=== PATIENT | male | born 1935 | race Hispanic/Latino ===

== ENCOUNTER 2019-03-09 10:39 | Inpatient (IN) | payer MEDICARE, BC ==
[2019-03-09 11:32] LABS: Bilirubin Negative (Negative); Blood, Urine Negative (Negative); Clarity Clear (Clear); Glucose, Urine (Dipstick) Normal (Negative); Leukocyte Negative Leu/uL (Negative); Nitrite Negative (Negative); Protein, Urine (Dipstick) Negative (Neg-Trace); Urobilinogen Normal mg/dL (Less than 2)
--- NOTE | 2019-03-09 11:34 | RAD ---
PORTABLE CHEST 1 VIEW: Date: 03/09/19 Time: 1107 hours HISTORY: New onset atrial fibrillation. COMPARISON: 11/02/13. FINDINGS: Pleural calcifications again seen. Heart size normal. Aorta tortuous. Lungs expanded without lobar co nsolidation, pneumothoraces, or pleural effusions. IMPRESSION: No acute process. POS: TONYA
[2019-03-09 11:45] LABS: #Eosinphils 0.1 thou/uL (0.0-0.7); #Lymphocytes 0.7 thou/uL (1.20-3.40); #Monocytes 0.5 thou/uL (0.11-0.59); %Basophils 0.1 % (0.0-1.0); %Eosinophils 1.7 % (0.0-10.0); %Lymphocytes 13.3 % (21.0-51.0); %Monocytes 8.6 % (0.0-10.0); %Neutrophils 76.3 % (42.0-75.0); Hemoglobin 13.4 g/dL (14.0-18.0); Mean Corpuscular HGB CONC 32.7 g/dL (32.0-36.0); Mean Corpuscular Hemoglobin 25.4 pg (27.0-31.0); Mean Corpuscular Volume 77.7 fL (78.0-98.0); Mean Platelet Volume 7.6 fL (7.4-10.4); Platelet Count 219 thou/uL (130-400); RBC Distribution Width 17.2 % (11.5-14.5); Red Blood Cell (RBC) Count 5.28 mill/uL (4.70-6.10); White Blood Cell (WBC) Count 5.3 thou/uL (4.8-10.8)
[2019-03-09 12:11] LABS: ALT (SGPT) 12 U/L (8-55); AST (SGOT) 25 U/L (5-34); Albumin 4.1 g/dL (3.4-4.8); Alkaline Phosphatase 60 U/L (40-150); Anion Gap 13 mmol/L (10-20); BUN (Urea Nitrogen) 8 mg/dL (8.4-25.7); Bilirubin, Total 1.4 mg/dL (0.2-1.2); Calc. Creatinine Clearance 0 mL/min (70-130); Carbon Dioxide 24 mmol/L (23-31); Chloride 105 mmol/L (98-107); Estimated GFR-MDRD Greater than 90; Globulin 2.8 g/dL (2.4-3.5); Glucose 84 mg/dL (83-110); Magnesium 2.1 mg/dL (1.6-2.6); Potassium 4.3 mmol/L (3.5-5.1); Protein, Total 6.9 g/dL (5.8-8.1); Sodium 138 mmol/L (136-145)
[2019-03-09 16:27] LABS: Troponin I Less than 0.010 ng/mL (< 0.028)
[2019-03-09] MEDS ORDERED: Enoxaparin Sodium 60 MG/0.6 ML SYRINGE ONE (16:47)
--- NOTE | 2019-03-09 18:40 | HP ---
CHIEF COMPLAINT: Referred from GI for atrial fibrillation. HISTORY: The patient is an 83-year-old male, who presented via the emergency department. The patient presented to Dr. Valdez today for a routine followup screening colonoscopy for a history of colon cancer status post colectomy with stoma. The patient felt fine, but when he arrived at the GI lab, he was in atrial fibrillation with a heart rate in the 120s. He denied any chest pain, shortness of breath, or palpitations. He states he is very active and has had no limitations on his activities. The patient was subsequently referred to the ER, where he has had ongoing atrial fibrillation with much better rate control. He remains asymptomatic and has not received any medications at this time. Of note, the patient reports he has not had any food since Thursday and he did a bowel prep last evening, has not eaten today either. He currently says he feels fine and he remains asymptomatic. PAST MEDICAL HISTORY: Notable for the colon cancer. PAST SURGICAL HISTORY: Partial colectomy with colostomy and polypectomies. FAMILY HISTORY: The patient's father of suicide at the age of 85, but had no other medical problems. His mother had stomach cancer. His two brothers did have colon cancer with colostomies and one brother with possibly some atrial fibrillation. SOCIAL HISTORY: The patient drinks 4 to 5 beers in the evening. Denies tobacco. He is a and has 4 kids. The patient is full code and his daughters are his surrogate decision makers. REVIEW OF SYSTEMS: Minimal arthritis pain, minimal neck pain following a fall injury 30 plus years ago. All other systems reviewed. All pertinent positives and negatives noted in the HPI. ALLERGIES: NONE. HOME MEDICATIONS: None. PHYSICAL EXAMINATION: VITAL SIGNS: BP most recent 165/93, pulse 67, respirations 17, temperature 97.9, O2 saturation 99% on room air. GENERAL APPEARANCE: Age-appropriate male. He is awake and alert, in no distress. HEENT: ANALISA. No OP lesions. NECK: Supple and symmetric. No lymphadenopathy, JVD, or bruits. HEART: Regular rate and rhythm without murmurs, gallops, or rubs. LUNGS: Clear to auscultation bilaterally with good chest wall expansion and air exchange. ABDOMEN: Soft, nontender, and nondistended. Positive bowel sounds. No masses. No organomegaly. EXTREMITIES: No cyanosis, clubbing, or edema. NEUROLOGIC: The patient appears to be fully intact. He has good movement of all extremities, cognitively appropriate. PSYCHIATRIC: Normal affect and behavior. LABORATORY DATA: White count 5.3, hemoglobin 13.4, platelets 219, MCV 77.7. Chemistries; BUN is 8, total bilirubin is 1.4. BNP is 104.6. Troponin less than 0.01 x2. Urinalysis negative. Chest x-ray shows no acute process. IMPRESSION AND PLAN: 1. New diagnosis of atrial fibrillation. The patient is completely asymptomatic, so it is unclear how long he might have been having these episodes. I have been watching his monitor in the emergency department and he has been intermittently going in and out of atrial fibrillation, alternating with normal sinus rhythm. His rates tend to vary a bit with that. Requested Lovenox 1 mg/kg to be given here. We will keep him on telemetry, observe him overnight, and get an echocardiogram and a Cardiology consult. He seems to have good rate control now and does not appear to require any medications for additional rate control. We will not start on some long-term anticoagulation just yet as he is a bit anemic and appears to have some microcytosis, which could be some iron deficiency. We need to talk to Dr. Valdez as it sounds like this maybe more of a chronic issue for him. 2. Anemia. The patient has very mild microcytic anemia. Again, the patient's daughters who are present with him indicate that he had a hemoglobin around [address] Valdez and this certainly maybe chronic. He also reports in the past around the time of his original cancer that he did have to be on some iron supplementation. Job ID: [id number]
[2019-03-09 19:06] LABS: Troponin I Less than 0.010 ng/mL (< 0.028)
[2019-03-09 22:02] VITALS: BMI 20.5
[2019-03-10 05:37] LABS: Band 3 % (5-11); Eosinophils 5 % (0-10); Lymphocytes 19 % (21-51); MDiff Complete? YES; Mean Corpuscular HGB CONC 32.4 g/dL (32.0-36.0); Mean Corpuscular Hemoglobin 25.4 pg (27.0-31.0); Mean Corpuscular Volume 78.3 fL (78.0-98.0); Mean Platelet Volume 7.7 fL (7.4-10.4); Monocytes 7 % (0-10); Neutrophil 66 % (42-75); Platelet Count 223 thou/uL (130-400); RBC Distribution Width 17.4 % (11.5-14.5); Red Blood Cell (RBC) Count 5.11 mill/uL (4.70-6.10); White Blood Cell (WBC) Count 4.6 thou/uL (4.8-10.8)
[2019-03-10 05:42] LABS: Iron 23 ug/dL (65-175); Iron Binding Capacity, Total 354 mcg/dL (261-462)
[2019-03-10 06:00] LABS: Ferritin 15.97 ng/mL (22-322); Thyroid Stimulating Hormone 2.7789 uIU/mL (0.35-4.94)
[2019-03-10] MEDS ORDERED: Ferrous Sulfate 325 MG TAB PO SCH (11:30)
--- NOTE | 2019-03-10 11:31 | PDOC.HOSPP ---
- Subjective Encounter Date: 03/10/19 Encounter Time: 11:27 Subjective: Patient states he has been feeling great. Denies any complaints. Has been walking around in the halls and denies any chest pain or shortness of breath. States this colonoscopy due yesterday was a 5 year routine surveillance procedure. The one done 5 years ago was unremarkable. He had his bowel resection in the 90s. States Dr. Valdez advised he follow-up with him in a few weeks to reschedule. Seen by Dr. Pollock this morning, awaiting echo results. - Objective Vital Signs & Weight: Vital Signs (12 hours) Temp Pulse Resp BP Pulse Ox 03/10/19 07:32 98.2 F 58 L 20 137/78 95 03/10/19 04:45 97.8 F 66 18 174/93 H 100 03/09/19 23:48 97.5 F L 74 12 170/81 H 98 Weight Weight 123 lb 1.6 oz I&O: 03/09/19 03/10/19 03/11/19 06:59 06:59 06:59 Output Total 225 Balance -225 Result Diagrams: 03/10/19 04:51 03/09/19 11:17 ROS - Review of Systems Constitutional: denies: fever, chills, sweats, weakness, malaise, other Eyes: denies: pain, vision change, conjunctivae inflammation, eyelid inflammation, redness, other ENT: denies: ear pain, ear discharge, nose pain, nose discharge, nose congestion , mouth pain, mouth swelling, throat pain, throat swelling, other Respiratory: denies: cough, dry, shortness of breath, hemoptysis, SOB with excertion, pleuritic pain, sputum, wheezing, other Cardiovascular: denies: chest pain, palpitations, orthopnea, paroxysmal noc. dyspnea, edema, light headedness, other Gastrointestinal: denies: nausea, vomitting, abdominal pain, diarrhea, constipation, melena, hematochezia, other Genitourinary: denies: dysuria, frequency, incontinence, hematuria, retention, other Musculoskeletal: denies: neck pain, shoulder pain, arm pain, back pain, hand pain, leg pain, foot pain, other Skin: denies: rash, lesions, saji, bruising, other Neurological: denies: weakness, numbness, incoordination, change in speech, confusion, seizures, other - Exam NAD, awake alert General - other findings: thin, well-developed Eye: PERRL (Arcus senilis), anicteric sclera ENT: normocephalic atraumatic, no oropharyngeal lesions Neck: supple, symmetric, no lymphadenopathy Heart: RRR, no murmur, no gallops, no rubs Respiratory: CTAB Gastrointestinal: soft, non-tender, non-distended, normal bowel sounds Gastrointestinal - other findings: Ostomy bag in place, left abdomen Skin: normal turgor Neurological: CN's grossly intact Musculoskeletal: normal tone, normal strength Psychiatric: normal affect, normal behavior, A&O x 3 Hosp A/P (1) A-fib Code(s): I48.91 - UNSPECIFIED ATRIAL FIBRILLATION Status: Acute Plan: New onset afib. S/p echo. Dr. Pollock following. Awaiting results and decision re: need for anticoagulation. Given Lovenox yesterday (1mg/kg). (2) Anemia Code(s): D64.9 - ANEMIA, UNSPECIFIED Status: Acute Qualifiers: Anemia type: iron deficiency Plan: Ferritin low, patient on Ferrous Sulfate 325 mg BID. Was scheduled for colonoscopy yesterday, canceled due to new onset afib. (3) History of colon cancer Code(s): Z85.038 - PERSONAL HISTORY OF MALIGNANT NEOPLASM OF LARGE INTESTINE Status: Chronic
--- NOTE | 2019-03-10 15:38 | CON ---
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 He was to undergo every 5-year colon[address]. Valdez. When he went to have his colonoscopy, he was found to have fast heart rate and EKGs reveal atrial fibrillation. He was then admitted for further evaluation. He denies any palpitations, shortness of breath, or chest discomfort. He denies any peripheral edema, except once when his hemoglobin was 3.6. PAST MEDICAL HISTORY: He denies any history of hypertension, diabetes, or hypercholesterolemia, although his blood pressure has been elevated here. MEDICATIONS: None, although he is supposed to be taking daily iron. ALLERGIES: NONE. PAST SURGICAL HISTORY: Removal of colon cancer. He also has had polypectomies. He has colostomy. SOCIAL HISTORY: He smoked as a teenager. He has 5 or 6 beers per day. FAMILY HISTORY: Negative for coronary artery disease. PHYSICAL EXAMINATION: VITAL SIGNS: Blood pressure 137/78. He has had blood pressures up to 174/93. Since he has been admitted, he has been in sinus rhythm. HEENT: PERRL. NECK: Supple. CHEST: Clear. CARDIAC: S1 and S2 are normal without any S3 or S4. There is a 1 to 2/6 systolic ejection murmur at the apex. Carotid upstroke is normal without bruits. ABDOMEN: Normal bowel sounds. EXTREMITIES: Revealed no clubbing, cyanosis, or edema. NEUROLOGIC: Grossly intact. IMAGING STUDIES: Chest x-ray revealed pleural calcifications. EKG, sinus tachycardia with rate of 121 per minute with nonspecific T-wave changes. Echocardiogram revealed normal left ventricular systolic function with ejection fraction of 50% to 55%, mild aortic stenosis, moderate aortic insufficiency, mitral annular calcification, moderate mitral regurgitation, mild tricuspid regurgitation. LABORATORY DATA: Hemoglobin 13.0, hematocrit 40.0, white count 4600, platelets 223,000. Sodium 138, potassium 4.3, chloride 105, carbon dioxide 24, BUN 8 creatinine 0.70. TSH is normal. BNP 104.6. Troponin I is normal. Iron 23, TIBC 354, percent saturation 7%. IMPRESSION: 1. Paroxysmal atrial fibrillation, asymptomatic. 2. Probable hypertension with elevated blood pressures during this admission. 3. History of arteriovenous malformations and gastrointestinal bleeding. He is not taking any iron for the last year and does have low serum iron. 4. History of colonic cancer status post partial colectomy with colostomy. 5. Ethanol abuse of 5 to 6 beers per day. 6. Mild aortic stenosis, moderate aortic insufficiency. RECOMMENDATIONS: With history of AV malformations, gastrointestinal bleeding and iron deficiency, and at this time a CHADS-VASc score of 2, I would not recommend long-term anticoagulation. With his elevated blood pressure, I will start him on beta- adrienne. Arrangements will be made for a 30-day monitor, so we can better document long- term success of beta-adrienne suppression of his atrial fibrillation. Also, consideration will be given on an outpatient basis for stress testing. Job ID: [id number] [facility]
[2019-03-10] MEDS: Ferrous Sulfate 325 MG TAB PO SCH (21:26)
[2019-03-11] MEDS ORDERED: hydrALAZINE 20 MG/ML VIAL SLOW IVP PRN (01:11)
[2019-03-11 08:11] LABS: #Eosinphils 0.2 thou/uL (0.0-0.7); #Lymphocytes 0.7 thou/uL (1.20-3.40); #Monocytes 0.5 thou/uL (0.11-0.59); %Basophils 0.3 % (0.0-1.0); %Eosinophils 4.2 % (0.0-10.0); %Lymphocytes 13.5 % (21.0-51.0); %Monocytes 9.8 % (0.0-10.0); %Neutrophils 72.3 % (42.0-75.0); Hemoglobin 13.8 g/dL (14.0-18.0); Mean Corpuscular HGB CONC 31.5 g/dL (32.0-36.0); Mean Corpuscular Hemoglobin 25.1 pg (27.0-31.0); Mean Corpuscular Volume 79.7 fL (78.0-98.0); Mean Platelet Volume 7.4 fL (7.4-10.4); Platelet Count 217 thou/uL (130-400); RBC Distribution Width 17.3 % (11.5-14.5); Red Blood Cell (RBC) Count 5.48 mill/uL (4.70-6.10); White Blood Cell (WBC) Count 5.5 thou/uL (4.8-10.8)
[2019-03-11] MEDS: Ferrous Sulfate 325 MG TAB PO SCH ×2 (08:31→20:05)
[2019-03-11 08:43] LABS: Anion Gap 13 mmol/L (10-20); BUN (Urea Nitrogen) 14 mg/dL (8.4-25.7); Calc. Creatinine Clearance 66 mL/min (70-130); Carbon Dioxide 25 mmol/L (23-31); Chloride 101 mmol/L (98-107); Estimated GFR-MDRD Greater than 90; Glucose 92 mg/dL (83-110); Potassium 4.4 mmol/L (3.5-5.1); Sodium 135 mmol/L (136-145)
[2019-03-11] MEDS ORDERED: Dronedarone HCl 400 MG TAB PO SCH (09:30)
--- NOTE | 2019-03-11 14:42 | PDOC.HOSPP ---
- Subjective Encounter Date: 03/11/19 Encounter Time: 11:40 Subjective: Patient states he feels great and denies any complaints. He was noted to be in afib/aflutter early hours this morning. Started on betablockers by Dr. Pollock yesterday, who advised no long-term anticoagulation. Also advised outpatient heart monitor. Patient had been in normal sinus. Denies any palpitations, CP, SOB or lightheadedness. - Objective Vital Signs & Weight: Vital Signs (12 hours) Temp Pulse Resp BP Pulse Ox 03/11/19 11:50 97.7 F 59 L 16 165/79 H 95 03/11/19 07:39 97.8 F 65 16 162/88 H 94 L 03/11/19 05:00 97.8 F 65 16 173/90 H 98 Weight Weight 123 lb 1.6 oz I&O: 03/10/19 03/11/19 03/12/19 06:59 06:59 06:59 Intake Total 1020 Output Total 225 Balance -225 1020 Result Diagrams: 03/11/19 07:58 03/11/19 07:58 ROS - Review of Systems Constitutional: denies: fever, chills, sweats, weakness, malaise, other Eyes: denies: pain, vision change, conjunctivae inflammation, eyelid inflammation, redness, other ENT: denies: ear pain, ear discharge, nose pain, nose discharge, nose congestion , mouth pain, mouth swelling, throat pain, throat swelling, other Respiratory: denies: cough, dry, shortness of breath, hemoptysis, SOB with excertion, pleuritic pain, sputum, wheezing, other Cardiovascular: denies: chest pain, palpitations, orthopnea, paroxysmal noc. dyspnea, edema, light headedness, other Gastrointestinal: denies: nausea, vomitting, abdominal pain, diarrhea, constipation, melena, hematochezia, other Genitourinary: denies: dysuria, frequency, incontinence, hematuria, retention, other Musculoskeletal: denies: neck pain, shoulder pain, arm pain, back pain, hand pain, leg pain, foot pain, other Skin: denies: rash, lesions, saji, bruising, other Neurological: denies: weakness, numbness, incoordination, change in speech, confusion, seizures, other - Medication Medications: Active Medications Generic Name Dose Route Start Last Admin Trade Name Jaz PRN Reason Stop Dose Admin Ferrous Sulfate 325 mg 03/10/19 21:00 03/11/19 08:31 Feosol PO 325 mg BID ROSANGELA Administration Metoprolol Succinate 50 mg 03/11/19 09:00 03/11/19 06:42 Toprol Xl PO 50 mg DAILY ROSANGELA Administration - Exam NAD, awake alert Eye: PERRL, anicteric sclera ENT: normocephalic atraumatic Neck: supple, symmetric, no JVD, no thyromegaly, no lymphadenopathy Heart: RRR Respiratory: CTAB, no wheezes, no rales, no ronchi, normal chest expansion Gastrointestinal: soft, non-tender, non-distended, normal bowel sounds, no guarding, no rigidity Gastrointestinal - other findings: ostomy bag in place Extremities: no cyanosis, no clubbing, no edema Skin: normal turgor, no lesions, no rashes Neurological: CN's grossly intact Musculoskeletal: normal tone, normal strength Psychiatric: normal affect, normal behavior, A&O x 3 Hosp A/P (1) A-fib Code(s): I48.91 - UNSPECIFIED ATRIAL FIBRILLATION Status: Acute Plan: Started on betablockerand Multaq this am, Dr. Pollock following. (2) Anemia Code(s): D64.9 - ANEMIA, UNSPECIFIED Status: Chronic Qualifiers: Anemia type: iron deficiency Plan: Restarted on Ferrous Sulfate which he was taking previously but stopped for some time. (3) History of colon cancer Code(s): Z85.038 - PERSONAL HISTORY OF MALIGNANT NEOPLASM OF LARGE INTESTINE Status: Chronic - Plan out of bed/ambulate, DVT proph w/SCDs ADDENDUM: Seen by Dr. Pollock, will remain inpatient given persistent afib. EHR advised patient qualifies for inpatient status.
[2019-03-11] MEDS: Dronedarone HCl 400 MG TAB PO SCH (16:47)
[2019-03-11] MEDS: Lisinopril 10 MG TAB PO SCH (20:05)
[2019-03-12] MEDS: Ferrous Sulfate 325 MG TAB PO SCH (08:43)
[2019-03-12] MEDS: Dronedarone HCl 400 MG TAB PO SCH (08:43)
[2019-03-12] MEDS: Lisinopril 10 MG TAB PO SCH (08:44)
[2019-03-12 12:34] VITALS: BP 120/70; TEMP 98.5
--- NOTE | 2019-03-12 16:28 | PDOC.CTH ---
Cardiology Progress Note - Subjective Doing well. No new issues. - Objective Vital Signs Temp Pulse Resp BP BP Pulse Ox 03/12/19 12:33 98.5 F 74 18 120/70 92 L 03/12/19 08:45 96 03/12/19 08:44 161/94 H 03/12/19 08:37 97.8 F 55 L 18 142/67 H 96 Weight 123 lb 11.2 oz 03/11/19 03/12/19 03/13/19 06:59 06:59 06:59 Intake Total 1020 600 Balance 1020 600 - Physical Examination General/Neuro: alert & oriented x3, NAD Neck: no JVD present Lungs: unlabored respirations Heart: RRR Abdomen: NT/ND Extremities: other: (no edema) - Telemetry Telemetry Rhythm: NSR - Labs Result Diagrams: 03/11/19 07:58 03/11/19 07:58 Troponin/CKMB Troponin I Less than 0.010 ng/mL (< 0.028) 03/09/19 18:35 - Assessment/Plan 1. Paroxysmal afib 2. HTN 3. Hx of AV malformations and GI bleeding 4. Hx of colon cancer 5. Alcohol abuse 6. Mild , moderate AI PLAN: - CV stable. - Not a candidate for anticoagulation due to his Hx of GI bleeding. - Continue other meds.
--- NOTE | 2019-03-12 23:03 | DIS ---
DATE OF ADMISSION: 03/11/2019 DATE OF DISCHARGE: 03/12/2019 REASON FOR HOSPITALIZATION: New onset of atrial fibrillation with rapid ventricular response. SIGNIFICANT FINDINGS: The patient was found to be in atrial fibrillation and required medication adjustment with rate control strategy. TREATMENT RENDERED: The patient was started on oral antiarrhythmic and rate control agents with good control of atrial fibrillation. CONDITION ON DISCHARGE: Stable. SPECIFIC INSTRUCTIONS FOR THE PATIENT AND FAMILY: The patient is to start dronedarone and metoprolol as directed by [facility] and recommended to keep a blood pressure and heart rate log over the upcoming weeks. The patient has been set up with heart monitoring which will go home with the patient and to be followed within the [facility] outpatient setting. The patient has been recommended by Cardiology not to be on oral anticoagulation, which I agree with for this patient. The patient recommended to return to [facility] immediately if signs or symptoms return, worsen, or any other new symptoms occur. DIAGNOSES: 1. Atrial fibrillation with rapid ventricular response. 2. Hypertension. 3. Iron deficiency anemia. 4. Osteoarthritis. HOSPITAL COURSE: Mr. Mayes is a very pleasant 83-year-old gentleman who tells me that prior to admission, he was healthy and takes no medications including no aspirin. The patient was following up with his ct technician for routine colonoscopy as he was directed every 5 years and at that time, he was found to have atrial fibrillation with rapid ventricular response, the patient was sent into [facility] for further evaluation. The patient was admitted to [facility] on 03/09/2019, found to be in atrial fibrillation with rapid ventricular response. Cardiology consultation requested. Please see full consultation and progress notes from Dr. Boom Pollock for full details. The patient has an echocardiogram, please see full report for details. The patient found to have a preserved ejection fraction of 50% to 55%, without significant diastolic dysfunction and there is mild to moderate valvular pathology-please see full report for details. The patient was started on combination therapy for atrial fibrillation including Multaq/dronedarone in addition to metoprolol. With the addition of metoprolol, the patient did have problems with bradycardia and metoprolol dose was decreased. The patient did have persistent uncontrolled hypertension and lisinopril was added for better blood pressure control. With several days of adjusting blood pressure medications, the patient's heart rate was controlled ranging from 50s to 70s with movement, and his blood pressure was controlled in the systolic 160 range. The patient was evaluated by Cardiology on 03/12/2019, and recommended safe for discharge with close followup in the outpatient setting. I personally explained instructions on medications and followup to the patient and his daughters in person and over the telephone at length. Many questions were asked and all were answered in detail. I expressively informed the patient and the patient's family that if any signs or symptoms return or worsen, he has to return to acute care hospital immediately for reevaluation. Job ID: [id number]
== END 2019-03-12 14:05 | disposition home or self-care (01) | DRG 310 ==
LOC: ERS 10:39 → ERHOLD 15:15 → 2SW 21:50 → OBSVTOIN 03-11 15:37 → 2NO 03-11 18:49
PROVIDERS: ADMIT Internal Medicine; ATTEND Internal Medicine
DX: I48.0 Paroxysmal atrial fibrillation (principal); D50.9 Iron deficiency anemia, unspecified; M19.90 Unspecified osteoarthritis, unspecified site; F10.10 Alcohol abuse, uncomplicated; I08.2 Rheumatic disorders of both aortic and tricuspid valves; Z90.49 Acquired absence of other specified parts of digestive tract; Z87.891 Personal history of nicotine dependence; Z85.038 Personal history of other malignant neoplasm of large intestine
CPT/HCPCS: 36415; 71045; 80048; 80053; 81003; 82728; 83540; 83550; 83735; 83880; 84443; 84484; 85007; 85025; 85027; 93005; 93306; 94760; 96372; J1650

== ENCOUNTER 2023-04-03 06:03 | Day surgery (SDC) | payer MEDICARE ==
[2023-04-02 11:04] VITALS: BMI 20.7
[2023-04-03 07:38] LABS: #Eosinphils 0.1 thou/uL (0.0-0.7); #Monocytes 0.5 thou/uL (0.11-0.59); #Neutrophils 4.1 thou/uL (1.40-6.50); %Basophils 0.2 % (0.0-1.0); %Eosinophils 2.1 % (0.0-10.0); %Lymphocytes 16.2 % (21.0-51.0); %Monocytes 8.5 % (0.0-10.0); %Neutrophils 72.6 % (42.0-75.0); Hematocrit 33.9 % (42.0-52.0); Hemoglobin 11.1 g/dL (14.0-18.0); Mean Corpuscular HGB CONC 32.7 g/dL (32.0-36.0); Mean Corpuscular Hemoglobin 30.2 pg (27.0-31.0); Mean Corpuscular Volume 92.4 fl (78.0-98.0); Mean Platelet Volume 9.4 fL (7.4-10.4); Platelet Count 245 10x3/uL (130-400); RBC Distribution Width 13.3 % (11.5-14.5); Red Blood Cell (RBC) Count 3.67 mill/uL (4.70-6.10); White Blood Cell (WBC) Count 5.6 10x3/uL (4.8-10.8)
[2023-04-03 08:01] LABS: Anion Gap 14 mmol/L (10-20); BUN (Urea Nitrogen) 13 mg/dL (8.4-25.7); Calc. Creatinine Clearance 66 mL/min (70-130); Carbon Dioxide 24 mmol/L (23-31); Chloride 107 mmol/L (98-107); Estimated GFR 92; Glucose 81 mg/dL (83-110); Potassium 3.1 mmol/L (3.5-5.1); Sodium 142 mmol/L (136-145)
[2023-04-03] MEDS ORDERED: PROPOFOL 200 MG/20 ML VIAL ONE (08:23)
[2023-04-03] MEDS ORDERED: Lidocaine 1% PF 5 ML VIAL ONE (08:23)
== END 2023-04-03 09:45 | disposition home or self-care (01) ==
LOC: SDC 06:03
PROVIDERS: ATTEND Internal Medicine Cardiovascular Disease
PROC: B246ZZ4 Ultrasonography of Right and Left Heart, Transesophageal (ICD-10-PCS; principal; 2023-04-03)
DX: I48.0 Paroxysmal atrial fibrillation (principal); I35.0 Nonrheumatic aortic (valve) stenosis; I34.0 Nonrheumatic mitral (valve) insufficiency; I36.0 Nonrheumatic tricuspid (valve) stenosis; Z79.01 Long term (current) use of anticoagulants
CPT/HCPCS: 80048; 85025; 93312; J2704